=== PATIENT | male | born 1990 | race Caucasian/White ===

== ENCOUNTER 2018-04-18 08:35 | Emergency (ER) | payer OTHER, SELFPAY ==
[2018-04-18 08:38] VITALS: BP 150/97; PULSE 85; RESP 15; TEMP 36.3; O2SAT 98; BMI 28.7
--- NOTE | 2018-04-18 08:39 | ED.ABDPAIN ---
HPI - Abdominal Pain General Chief Complaint: Abdominal Pain Stated Complaint: Abdominal pain right side Time Seen by Provider: 04/18/18 08:38 Source: EMS Mode of arrival: EMS Limitations: no limitations History of Present Illness HPI narrative: Patient is a 27-year-old male who presents with right lower quadrant pain. He said it woke him up from his sleep around 2:00 a.m. and has been fairly constant. It is radiating to his flank. Not to his groin. He denies nausea or vomiting. He arrives by [facility] where he did receive 25 mcg of fentanyl. He has not had fever or chills. Pain started in his right lower quadrant without migration. No blood in his urine. MD complaint: abdominal pain Onset (ago): hour(s) Pain Consistency: constant Location: RLQ Severity: moderate Migration to: no migration Related Data Allergies Allergy/AdvReac Type Severity Reaction Status Date / Time No Known Drug Allergies Allergy Unverified 04/18/18 08:38 Review of Systems Review of Systems GENERAL: Denies chills, fatigue, malaise, fever, sweats, travel HEENT: Denies sinus pain, ear pain, sore throat, difficulty swallowing, neck pain RESPIRATORY: Denies dyspnea, cough, wheezing, hemoptysis, sputum. CARDIOVASCULAR: Denies chest pain, palpitations, orthopnea, edema GASTROINTESTINAL: See HPI : + flank pain see HPI MUSCULOSKELETAL: Denies weakness, joint pain, or bony pain SKIN: No rash, no erythema, no pruritus NEUROLOGIC: Denies weakness, dizziness, headache, numbness, change in speech, confusion PSYCHIATRIC: No concerning psychosocial issues. 12 point review of systems is negative except for those stated above and HPI [facility] Surgical History History of third molar tooth extraction History of tonsillectomy Family History Father Age: 74 Diabetes mellitus Social History Smoking Status: Never smoker alcohol intake: never substance use type: does not use Exam Initial Vital Signs Initial Vital Signs: Vital Signs Temperature 97.3 F L 04/18/18 08:38 Pulse Rate 85 04/18/18 08:38 Respiratory Rate 15 04/18/18 08:38 Blood Pressure 150/97 H 04/18/18 08:38 Pulse Oximetry 98 04/18/18 08:38 GENERAL: Well-appearing, well-nourished and in no acute distress. HEENT: Head atraumatic,EOMI, pupils reactive, CARDIOVASCULAR: Regular rate and rhythm without murmurs, rubs or gallops. RESPIRATORY: Breath sounds equal bilaterally, no wheezes rales or rhonchi. ABDOMEN: Soft, mild tenderness right lower quadrant no guarding or rebound no right upper quadrant pain negative Salazar sign : Minimal right CVA tenderness EXTREMITIES: Normal range of motion, no clubbing or edema. Neurovascularly intact NEUROLOGICAL: Alert and oriented x4.Normal gait and speech. SKIN: Warm, dry, no laceration, no petechiae, no rashes or lesions. Course Orders Ordered: Discontinued Medications Sodium Chloride (Normal Saline 0.9%) 1,000 mls @ 1,000 mls/hr IV CONT ELBERT Last Infusion: 04/18/18 14:29 Dose: 0 mls/hr Infusion: 04/18/18 10:07 Dose: 0 mls/hr Admin: 04/18/18 09:13 Dose: 1,000 mls/hr Infusion: 04/18/18 09:13 Dose: 1,000 mls/hr Admin: 04/18/18 08:43 Dose: 1,000 mls/hr Vital Signs - 8 hr 04/18/18 08:38 Temperature 97.3 F L Pulse Rate 85 Respiratory Rate 15 Blood Pressure 150/97 H Pulse Oximetry 98 MDM - Abdominal Pain Lab Data Attestation: I reviewed the patient's lab results. Result diagrams: 04/18/18 08:49 04/18/18 08:49 Lab Results 04/18/18 04/18/18 Range/Units 08:49 08:49 WBC 8.2 (4.5-11.0) X10^3/uL RBC 5.66 (4.5-5.9) X10^6/uL Hgb 16.6 (13.5-17.5) g/dL Hct 48.1 (41-53) % MCV 85.1 (80-100) fL MCH 29.3 (26-34) PG MCHC 34.4 (30-36) % RDW 12.7 (11.6-14.8) % Plt Count 244 (150-400) X10^3/uL Neut % (Auto) 80.5 H (50-75) % Lymph % (Auto) 10.1 L (25-40) % Luce % (Auto) 8.9 (3-14) % Eos % (Auto) 0.2 L (2-4) % Baso % (Auto) 0.3 (0-2) % Neut # (Auto) 6600 H (4027-2649) /uL Sodium 144 (137-145) mmol/L Potassium 4.6 (3.4-5.1) mmol/L Chloride 105 (98-107) mmol/L Carbon Dioxide 23 (22-32) mmol/L BUN 13 (9-20) mg/dL Creatinine 0.90 (0.66-1.25) mg/dL Estimated GFR > 60.0 (>60) mL/min BUN/Creatinine Ratio 14.4 (6-22) Glucose 100 (70-100) mg/dL Calcium 8.8 (8.4-10.2) mg/dL Total Bilirubin 0.3 (0.2-1.3) mg/dL AST 40 (17-59) IU/L ALT 80 H (21-72) IU/L Alkaline Phosphatase 77 (38-126) U/L Total Protein 7.6 (6.3-8.2) g/dL Albumin 4.7 (3.5-5.0) g/dL Globulin 2.9 (1.7-4.1) g/dL Albumin/Globulin Ratio 1.6 (1.0-2.8) Lipase 62 (23-300) U/L Point of care testing: Urine Dip Bedside Urine Glucose Negative Bedside Urine Bilirubin - Negative Bedside Urine Ketone - Negative Urine Specific Newman 1.015 Bedside Urine Occult Blood +++ Bedside Urine pH 6 Bedside Urine Protein - Negative Bedside Urine Urobilinogen .2 Bedside Urine Nitrite - Negative Bedside Urine Leukocytes - Negative Esterase Imaging Data CT scan - abdomen: Radiologist's impression: Report did not transmit over to [email or web address]. 1 right posterior urinary bladder calculus which likely recently passed via right collecting system 2. Normal appendix. 3. Hepatic steatosis. Discharge Plan Departure Patient Disposition: Home Clinical Impression: Kidney stone on right side Discharge Date/Time: 04/18/18 10:14 Interventions: ED Discharge Assessment Last Done: 04/18/18 10:10 Instructions: DI for Kidney Stones Activity Restrictions/Additional Instructions: *You have been diagnosed with right-sided kidney stone *What to do: It appears that you passed a kidney stone. *Continue to take medications as directed -Motrin 800 mg every 8 hr as needed for pain *Follow up with your primary care provider in 2-3 days *Return to ER if you should have any new, worsening or concerning symptoms Referrals: Fermín Cuevas MD [Family Provider] -
[2018-04-18] MEDS: SODIUM CHLORIDE 0.9% 1,000 ML 1000 ML IV ×2 (08:43→09:13)
[2018-04-18 09:01] LABS: Add Manual Diff / Slide Review NO; Basophils Percent Auto 0.3 % (0-2); Eosinophils Percent Auto 0.2 % (2-4); Hematocrit 48.1 % (41-53); Hemoglobin 16.6 g/dL (13.5-17.5); Lymphocytes Percent Auto 10.1 % (25-40); Mean Corpuscular HGB Conc 34.4 % (30-36); Mean Corpuscular Hemoglobin 29.3 PG (26-34); Mean Corpuscular Volume 85.1 fL (80-100); Monocytes Percent Auto 8.9 % (3-14); Neutrophils Absolute Auto 6600 /uL (3000-5900); Neutrophils Percent Auto 80.5 % (50-75); Platelet Count 244 X10^3/uL (150-400); Red Blood Cell Count 5.66 X10^6/uL (4.5-5.9); Red Cell Distribution Width 12.7 % (11.6-14.8); White Blood Cell Count 8.2 X10^3/uL (4.5-11.0)
--- NOTE | 2018-04-18 09:20 | DI.CT.S_ITS ---
PROCEDURE: CT ABDOMEN PELVIS W CON INDICATIONS: right lower quad pain TECHNIQUE: After the administration of intravenous contrast, 5 mm thick sections acquired from the diaphragm to the symphysis. 5 mm coronal and sagittal reformats were acquired. For radiation dose reduction, the following was used: automated exposure control, adjustment of mA and/or kV according to patient size. COMPARISON: None. FINDINGS: Image quality: Excellent. ABDOMEN: Lung bases: Lung bases are clear. Heart size is normal. Solid organs: Liver is enlarged, and demonstrates diffusely decreased density, indicating fatty infiltration. Gallbladder is within normal limits. Biliary system is non dilated. Pancreas enhances normally. Spleen is normal in size and enhancement. No adrenal nodules. Kidneys demonstrate normal size and enhancement, without hydronephrosis. Peritoneum and bowel: Bowel loops demonstrate normal wall thickness and caliber. No free fluid or air. Normal appendix. Nodes and vessels: No retroperitoneal or mesenteric adenopathy by size criteria. Aorta and inferior vena cava are normal in size. Miscellaneous: No ventral hernias. PELVIS: Genitourinary: Bladder wall thickness is normal. There is a 2 mm diameter calculus within the right posterior bladder adjacent to the ureterovesical junction. Miscellaneous: No inguinal hernias or adenopathy. Bones: No suspicious bony lesions. No vertebral body compression fractures. IMPRESSION: 1. Right posterior urinary bladder calculus, which likely recently passed via the right collecting system. 2. Normal appendix. 3. Hepatic steatosis. Dictated by: Debra Griffith M.D. on 04/18/2018 at 9:21 Approved by: Debra Griffith M.D. on 04/18/2018 at 9:23
[2018-04-18 09:25] LABS: Alanine Aminotransferase 80 IU/L (21-72); Albumin 4.7 g/dL (3.5-5.0); Albumin Globulin Ratio 1.6 (1.0-2.8); Alkaline Phosphatase 77 U/L (38-126); Aspartate Aminotransferase 40 IU/L (17-59); BUN Creatinine Ratio 14.4 (6-22); Bilirubin Total 0.3 mg/dL (0.2-1.3); Blood Urea Nitrogen 13 mg/dL (9-20); Calcium 8.8 mg/dL (8.4-10.2); Carbon Dioxide 23 mmol/L (22-32); Chloride 105 mmol/L (98-107); Estimated Glomerular Filt Rate > 60.0 mL/min (>60); Globulin 2.9 g/dL (1.7-4.1); Glucose 100 mg/dL (70-100); HEMOLYSIS < 15 (0-50); Lipase 62 U/L (23-300); Potassium 4.6 mmol/L (3.4-5.1); Sodium 144 mmol/L (137-145); Total Protein 7.6 g/dL (6.3-8.2)
--- NOTE | 2018-04-18 09:51 | PC.NURSE ---
md aware of results of urine poc, +blood. no send down per md
== END 2018-04-18 10:14 | disposition home or self-care (01) ==
LOC: ED 09:50
PROVIDERS: Emergency Provider Emergency Medicine; Family Provider Family Medicine
DX: N20.0 Calculus of kidney (principal)
CPT/HCPCS: 36415; 74177; 80053; 81003; 83690; 85025; 96360; 99283; 99285; Q9967

== ENCOUNTER 2021-01-30 15:14 | Emergency (ER) | payer OTHER, SELFPAY ==
[2021-01-30 15:25] VITALS: BP 143/98; PULSE 84; RESP 16; TEMP 36.8; O2SAT 98; BMI 31.8
--- NOTE | 2021-01-30 15:48 | DI.RAD.S_ITS ---
PROCEDURE: XR FOOT RT MIN 3V INDICATIONS: great toe injury TECHNIQUE: 3 views of the foot were acquired. COMPARISON: None. FINDINGS: Bones: There is a minimally displaced fracture at the base of the 1st proximal phalanx extending to the margin of the articular surface. No suspicious bony lesions. Soft tissues: No tibiotalar joint effusion. Achilles tendon appears normal. IMPRESSION: 1st proximal phalanx base fracture as above. Dictated by: Krystle Greenwood M.D. on 01/30/2021 at 15:59 Approved by: Krystle Greenwood M.D. on 01/30/2021 at 16:00
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
== END 2021-01-30 16:36 | disposition home or self-care (01) ==
PROVIDERS: Emergency Provider Emergency Medicine; Family Provider Family Medicine
DX: S92.401A Displaced unspecified fracture of right great toe, initial encounter for closed fracture (principal); X58.XXXA Exposure to other specified factors, initial encounter
CPT/HCPCS: 73630; 99281; 99283

== ENCOUNTER 2022-04-18 17:59 | Emergency (ER) | payer OTHER, SELFPAY ==
[2022-04-18 18:03] VITALS: BP 142/89; PULSE 71; RESP 16; TEMP 36.5; O2SAT 95; BMI 31.4
--- NOTE | 2022-04-18 18:11 | DI.CT.S_ITS ---
PROCEDURE: CT KIDNEY URETER BLADDER (KUB) INDICATIONS: left flank pain TECHNIQUE: Axial sections were acquired from the lung bases to the pubic symphysis. Coronal and sagittal reformats were performed. For radiation dose reduction, the following was used: automated exposure control, adjustment of mA and/or kV according to patient size. COMPARISON: None. FINDINGS: Image quality: Excellent. Lung bases: Unremarkable. Small hiatal hernia. Heart: No significant findings. URINARY: Right Kidney and ureter: Tiny 1-2-mm stones in right kidney. No hydronephrosis. No hydroureter. Left Kidney and ureter: There is a 2 mm stone at the right ureterovesical junction. Trace left hydronephrosis. Mild perinephric stranding and periureteral stranding. No other urinary stones. Bladder: Normal wall thickness. No stones. ABDOMEN: Liver: Normal size. Moderate hepatic steatosis. Gallbladder: Unremarkable. Biliary ducts: Unremarkable. Pancreas: Unremarkable. Spleen: Unremarkable. Adrenal Glands: Unremarkable. Stomach and Bowel: Stomach, small bowel loops, and colon are unremarkable. Peritoneum: No abnormal intraperitoneal fluid. No free air. Ventral Wall: No hernia. Abdominal Nodes: No enlarged retroperitoneal or mesenteric lymph nodes. Vessels: Aorta and inferior vena cava are normal in size. PELVIS: Pelvic Organs: Unremarkable. Pelvic Nodes: Unremarkable. Miscellaneous: No inguinal hernias are seen. Bones: Moderate degenerative disc disease at L1-L2 with posterior disc bulge and disc osteophyte complex causing moderate central canal stenosis. IMPRESSION: 1. A 2 mm stone at the left ureterovesical junction. There is mild left hydronephrosis. 2. Tiny nonobstructive right renal calculi.. 3. Hepatic steatosis. 4. Moderate central canal stenosis at L1-L2 secondary to degenerative disc disease. Dictated by: Angelito Adrian M.D. on 04/18/2022 at 19:30 Approved by: Angelito Adrian M.D. on 04/18/2022 at 19:35
[2022-04-18 19:18] VITALS: PULSE 71; O2SAT 96
[2022-04-18 19:19] VITALS: BP 140/97; PULSE 73; O2SAT 97
--- NOTE | 2022-04-18 19:24 | PC.NURSE ---
reports hx of htn, kidney stones, and migraines.
[2022-04-18 19:37] LABS: Add Manual Diff / Slide Review NO; Basophils Absolute Auto 100 /uL (0-100); Basophils Percent Auto 0.7 % (0-2); Eosinophils Absolute Auto 100 /uL (0-450); Eosinophils Percent Auto 1.2 % (2-4); Hematocrit 46.4 % (41-53); Hemoglobin 16.2 g/dL (13.5-17.5); Lymphocytes Absolute Auto 2300 /uL (1100-4500); Lymphocytes Percent Auto 28.2 % (25-40); Mean Corpuscular HGB Conc 34.9 % (30-36); Mean Corpuscular Hemoglobin 29.7 PG (26-34); Mean Corpuscular Volume 84.8 fL (80-100); Monocytes Absolute Auto 600 /uL (0-900); Monocytes Percent Auto 7.4 % (3-14); Neutrophils Absolute Auto 5200 /uL (1500-7000); Neutrophils Percent Auto 62.5 % (50-75); Platelet Count 243 X10^3/uL (150-400); Red Blood Cell Count 5.47 X10^6/uL (4.5-5.9); White Blood Cell Count 8.3 X10^3/uL (4.5-11.0)
--- NOTE | 2022-04-18 19:37 | ED_ITS ---
HPI - Back Pain/Injury General Chief Complaint: Back Pain/Injury Stated Complaint: L flank pain with hematuria Time Seen by Provider: 04/18/22 18:11 Source: patient and EMS History of Present Illness HPI Narrative: Patient is a 31-year-old male history of hypertension and kidney stones presenting today with left-sided flank pain radiating around his groin. He said pain started today started noticing blood in urine a couple days ago. No fever chills slightly nauseous. Feeling better after Toradol and Zofran. Is actually thirsty. Denies any chest pain shortness of breath or other symptoms Related Data Previous Rx's Medication Instructions Recorded cephalexin 500 mg capsule 500 mg PO BID 7 days #14 caps 04/18/22 hydrocodone 5 mg-acetaminophen 325 1 tab PO Q6H PRN pain #10 tabs 04/18/22 mg tablet ondansetron 4 mg disintegrating 4 mg PO Q8H #10 tabs 04/18/22 tablet Allergies Allergy/AdvReac Type Severity Reaction Status Date / Time No Known Drug Allergies Allergy Verified 01/30/21 15:25 Review of Systems Review of Systems Narrative: GENERAL: Denies chills, fatigue, malaise, fever, sweats, travel HEENT: Denies sinus pain, ear pain, sore throat, difficulty swallowing, neck pain RESPIRATORY: Denies dyspnea, cough, wheezing, hemoptysis, sputum. CARDIOVASCULAR: Denies chest pain, palpitations, orthopnea, edema GASTROINTESTINAL: Denies nausea, vomiting, abdominal pain, diarrhea, constipation, melena. : See HPI MUSCULOSKELETAL: Denies weakness, joint pain, or bony pain SKIN: No rash, no erythema, no pruritus NEUROLOGIC: Denies weakness, dizziness, headache, numbness, change in speech, confusion PSYCHIATRIC: No concerning psychosocial issues. 12 point review of systems is negative except for those stated above and HPI Patient History Medical History Cervical radiculopathy (03/16/16) Surgical History History of third molar tooth extraction History of tonsillectomy Family History Father Age: 78 Diabetes mellitus Social History Smoking Status: Never smoker alcohol intake: never substance use type: does not use Smoking Status: Never smoker Substance Use Type: does not use Exam Initial Vital Signs Initial Vital Signs: Vital Signs Temperature 97.7 F 04/18/22 18:03 Pulse Rate 71 04/18/22 18:03 Respiratory Rate 16 04/18/22 18:03 Blood Pressure 142/89 H 04/18/22 18:03 Pulse Oximetry 95 04/18/22 18:03 Oxygen Delivery Method 04/18/22 18:03 GENERAL: Alert pleasant 31-year-old male HEENT: Head atraumatic,EOMI, pupils reactive, face symmetric, moist mucous membranes CARDIOVASCULAR: Regular rate and rhythm without murmurs, rubs or gallops. RESPIRATORY: Breath sounds equal bilaterally, no wheezes rales or rhonchi. ABDOMEN: Soft, nontender. Normoactive bowel sounds all 4 quadrants. No guarding or rebound. : Mild left flank pain EXTREMITIES: Normal range of motion, no clubbing or edema. Neurovascularly intact NEUROLOGICAL: Alert and oriented x4. SKIN: Warm, dry, no laceration, no petechiae, no rashes or lesions. Course Orders Ordered: ED Orders 04/18/22 18:11 CT kidney ureter bladder (KUB) Stat 04/18/22 18:30 CBC Auto Diff [Complete Blood Count AUTO DIFF] Stat CMP [Comprehensive Metabolic Panel] Stat Lipase Stat 04/18/22 19:22 Ictotest Urine Stat UA Complete [Urinalysis and Microscopic] Stat Urine Culture Stat Discontinued Medications Hydrocodone Bitart/Acetaminophen (Hydrocodone/Acet 5/325 Prepack) 1 bottle MISC SEEINSTR ONE Stop: 04/18/22 20:51 Last Admin: 04/18/22 20:57 Dose: 1 bottle Documented By: FESTUS Cefazolin Sodium (Cephalexin 250 Mg Prepack) 1 bottle MISC SEEINSTR ONE Stop: 04/18/22 20:54 Last Admin: 04/18/22 20:57 Dose: 1 bottle Documented By: FESTUS Ketorolac Tromethamine (Ketorolac 30 Mg/Ml Vial) 15 mg IV NOW ONE Stop: 04/18/22 18:13 Last Admin: 04/18/22 18:20 Dose: Not Given Documented By: AMBIKA Morphine Sulfate (Morphine 2 Mg/Ml Inj) 2 mg IV NOW ONE Stop: 04/18/22 19:51 Last Admin: 04/18/22 20:00 Dose: 2 mg Documented By: FESTUS Ondansetron HCl (Ondansetron 4 Mg/2 Ml Inj) 4 mg IV NOW ONE Stop: 04/18/22 18:13 Last Admin: 04/18/22 19:19 Dose: Not Given Documented By: CAIO Ondansetron HCl (Ondansetron 4 Mg Odt Prepack) 1 bottle MISC SEEINSTR ONE Stop: 04/18/22 20:51 Last Admin: 04/18/22 20:57 Dose: 1 bottle Documented By: FESTSU Vital Signs Vital signs: Vital Signs - 8 hr 04/18/22 18:03 04/18/22 19:18 04/18/22 19:19 Temperature 97.7 F Pulse Rate 71 71 Respiratory Rate 16 Blood Pressure 142/89 H 140/97 H Pulse Oximetry 95 96 Oxygen Delivery Method Room Air 04/18/22 19:19 04/18/22 21:00 04/18/22 21:00 Temperature Pulse Rate 73 64 Respiratory Rate 18 Blood Pressure 143/98 H Pulse Oximetry 97 97 Oxygen Delivery Method MDM - Back Pain/Injury Differential Diagnosis Differential diagnosis: Likely lumbar radiculopathy, renal colic, pyelonephritis, AAA and discitis Lab Data Result diagrams: 04/18/22 18:30 04/18/22 18:30 Labs: Lab Results 04/18/22 04/18/22 04/18/22 Range/Units 18:30 18:30 19:22 WBC 8.3 (4.5-11.0) X10^3/uL RBC 5.47 (4.5-5.9) X10^6/uL Hgb 16.2 (13.5-17.5) g/dL Hct 46.4 (41-53) % MCV 84.8 (80-100) fL MCH 29.7 (26-34) PG MCHC 34.9 (30-36) % RDW 13.0 (11.6-14.8) % Plt Count 243 (150-400) X10^3/uL Neut % (Auto) 62.5 (50-75) % Lymph % (Auto) 28.2 (25-40) % Bailey % (Auto) 7.4 (3-14) % Eos % (Auto) 1.2 L (2-4) % Baso % (Auto) 0.7 (0-2) % Neut # (Auto) 5200 (8637-5315) /uL Lymph # (Auto) 2300 (8870-1317) /uL Bailey # (Auto) 600 (0-900) /uL Eos # (Auto) 100 (0-450) /uL Baso # (Auto) 100 (0-100) /uL Sodium 141 (137-145) mmol/L Potassium 3.8 (3.4-5.1) mmol/L Chloride 102 (98-107) mmol/L Carbon Dioxide 28 (22-32) mmol/L BUN 21 H (9-20) mg/dL Creatinine 0.89 (0.66-1.25) mg/dL Estimated GFR > 60 (>60) mL/min BUN/Creatinine Ratio 23.6 H (6-22) Glucose 98 (70-100) mg/dL Calcium 9.6 (8.4-10.2) mg/dL Total Bilirubin 0.4 (0.2-1.3) mg/dL AST 28 (17-59) IU/L ALT 56 H (<50) IU/L Alkaline Phosphatase 108 (38-126) U/L Total Protein 8.2 (6.3-8.2) g/dL Albumin 4.7 (3.5-5.0) g/dL Globulin 3.5 (1.7-4.1) g/dL Albumin/Globulin Ratio 1.3 (1.0-2.8) Lipase 66 (23-300) U/L Urine Color Brown Urine Appearance Cloudy Urine pH 5.0 (4.5-8.0) Ur Specific Alexander 1.025 (1.000-1.035) Urine Protein 3+ H (Negative) Urine Glucose (UA) Negative (Negative) g/dL Urine Ketones Trace H (NEGATIVE) Urine Occult Blood 3+ H (Negative) Urine Nitrate Negative (Negative) Urine Bilirubin 1+ H (NEGATIVE) Ur Bilirubin Confirm Negative (Negative) Urine Urobilinogen 0.2 (0.2) E.U./dL Ur Leukocyte Esterase Trace H (NEGATIVE) Urine RBC >100/hpf H (0-5/HPF) Urine WBC 1-5/hpf (0-5/HPF) Ur Squamous Epith Cells 0-1 /hpf (0-5/HPF) Amorphous Sediment 2+ Urine Bacteria Few (2-10) H (None) Urine Mucus 1+ H (Negative) Ur Culture Indicated? Specimen cultured Urine Dip Bedside Urine Glucose Negative Bedside Urine Bilirubin + 1 Bedside Urine Ketone +/- 5 Urine Specific Alexander 1.030 Bedside Urine Occult Blood +++ Bedside Urine pH 5.5 Bedside Urine Protein +++ 300 Bedside Urine Urobilinogen - Negative Bedside Urine Nitrite + Positive Bedside Urine Leukocytes + [address] scan - abdomen/pelvis: Radiologist's Impression: oliver Ramirez MR#: [id number] : 1990 Acct:[id number] Age/Sex: 31 / M Date of Service: 04/18/22 Loc: ED Accession Number: [id number] ?? Procedure: CT kidney ureter bladder (KUB) Ordering Provider: Jesika Stuart PROCEDURE:? CT KIDNEY URETER BLADDER (KUB) ? INDICATIONS:? left flank pain ? TECHNIQUE:? Axial sections were acquired from the lung bases to the pubic symphysis.? Coronal and sagittal reformats were performed.? For radiation dose reduction, the following was used: ?automated exposure control, adjustment of mA and/or kV according to patient size.? ? COMPARISON:? None. ? FINDINGS:? Image quality:? Excellent.? ? Lung bases:? Unremarkable.? Small hiatal hernia. ? Heart:? No significant findings. ? URINARY: Right Kidney and ureter: ? Tiny 1-2-mm stones in right kidney.? No hydronephrosis. ? No hydroureter.? ? Left Kidney and ureter:? There is a 2 mm stone at the right ureterovesical junction.? Trace left hydronephrosis.? Mild perinephric stranding and periureteral stranding.? No other urinary stones.? ? ? Bladder:? Normal wall thickness. No stones. ? ? ? ABDOMEN: Liver:? Normal size.? Moderate hepatic steatosis.? ? Gallbladder:? Unremarkable.? ? Biliary ducts:? Unremarkable.? ? Pancreas:? Unremarkable.? ? Spleen:? Unremarkable.? ? Adrenal Glands:? Unremarkable.? ? ? Stomach and Bowel:? Stomach, small bowel loops, and colon are unremarkable.? Peritoneum:? No abnormal intraperitoneal fluid.? No free air.? ? Ventral Wall: ? No hernia.? Abdominal Nodes:? No enlarged retroperitoneal or mesenteric lymph nodes.? Vessels:? Aorta and inferior vena cava are normal in size.? ? PELVIS: Pelvic Organs:? Unremarkable.? ? Pelvic Nodes: Unremarkable. Miscellaneous: No inguinal hernias are seen. ? ? ? Bones:? Moderate degenerative disc disease at L1-L2 with posterior disc bulge and disc osteophyte complex causing moderate central canal stenosis. ? IMPRESSION:? ? 1. A 2 mm stone at the left ureterovesical junction.? There is mild left hydronephrosis. ? 2. Tiny nonobstructive right renal calculi.. ? 3.? Hepatic steatosis. ? 4. Moderate central canal stenosis at L1-L2 secondary to degenerative disc disease.? Dictated by: Angelito Adrian M.D. on 04/18/2022 at 19:30 MDM Narrative Medical decision making narrative: Patient's pain is relatively controlled but still needing no bit of morphine. Blood work is reassuring. CT confirms a 2 mm kidney stone. Urinalysis positive for leukocytes and blood. Will start on antibiotics as well. Discharge Plan Departure Patient Disposition: Home Clinical Impression: Kidney stones, Acute UTI Activity Restrictions/Additional Instructions: *You have been diagnosed with kidney stone and UTI *What to do: Increase fluid intake pain control. May need to be seen by Urology if you continue to have kidney stones. I suspect that you will pass this in the next 24-48 hours. *Continue to take medications as directed--> SENT TO [facility] Motrin 600 mg every 6 hours if needed for [id number] pain [place] 1 tablet every 6 hours if needed for severe pain Zofran 4 mg every 8 hours if needed for nausea vomiting Keflex 500 mg twice a day for 7 days *Follow up with your primary care provider in 2-3 days or call [phone] *Return to ER if you should have increasing pain fever inability to urinate or any new, worsening or concerning symptoms CONTROLLED SUBSTANCE DISCHARGE (Narcotoic/benzodiazepine/Flexeril/Phenergan) 1. You have been prescribed narcotic medications, it does have consuelo taminophen/Tylenol/paracetamol in it, DO NOT TAKE MORE THAN 4,00mg in 24 hours of Tylenol. TRAMADOL DOES NOT CONTAIN TYLENOL 2. Please understand that we cannot provide further refills of narcotics, benzodiazepines or controlled substances through the ED and her pain management will need to be through your provider. 3. While on these medications you cannot drive or operate heavy machinery. 4. You cannot sign legal documents or perform any duties such as this. 5. As long as you're taking opiate pain medications he should also be taking a stool softener such as Colace, Dulcolax, MiraLAX or prune juice, to help avoid constipation. Prescriptions: New hydrocodone-acetaminophen 5-325 mg tablet 1 tab PO Q6H PRN (Reason: pain) Qty: 10 0RF cephalexin 500 mg capsule 500 mg PO BID 7 Days Qty: 14 0RF ondansetron 4 mg tablet,disintegrating 4 mg PO Q8H Qty: 10 0RF Referrals: Miscellaneous,Doctor, MD [Primary Care Provider] - Visit Report Forms: Patient Portal/API
[2022-04-18 19:51] LABS: Alanine Aminotransferase 56 IU/L (<50); Albumin 4.7 g/dL (3.5-5.0); Albumin Globulin Ratio 1.3 (1.0-2.8); Alkaline Phosphatase 108 U/L (38-126); Aspartate Aminotransferase 28 IU/L (17-59); BUN Creatinine Ratio 23.6 (6-22); Bilirubin Total 0.4 mg/dL (0.2-1.3); Blood Urea Nitrogen 21 mg/dL (9-20); Calcium 9.6 mg/dL (8.4-10.2); Carbon Dioxide 28 mmol/L (22-32); Chloride 102 mmol/L (98-107); Estimated Glomerular Filt Rate > 60 mL/min (>60); Globulin 3.5 g/dL (1.7-4.1); Glucose 98 mg/dL (70-100); HEMOLYSIS < 15 (0-50); Lipase 66 U/L (23-300); Potassium 3.8 mmol/L (3.4-5.1); Sodium 141 mmol/L (137-145); Total Protein 8.2 g/dL (6.3-8.2)
[2022-04-18] MEDS: MORPHINE 2 MG/ML INJ IV (20:00)
[2022-04-18] MEDS: ONDANSETRON 4 MG ODT PREPACK 1 BOTTLE MISC (20:57)
[2022-04-18] MEDS: HYDROCODONE/ACET 5/325 PREPACK 1 BOTTLE MISC (20:57)
[2022-04-18] MEDS: cephALEXin 250 MG PREPACK 1 BOTTLE MISC (20:57)
[2022-04-18 21:00] VITALS: BP 143/98; PULSE 64; RESP 18; O2SAT 97
[2022-04-18 21:20] LABS: Bilirubin Urine UA 1+ (NEGATIVE); Glucose Urine UA NEGATIVE (Negative); Ketones Urine UA TRACE (NEGATIVE); Leukocyte Esterase Urine UA TRACE (NEGATIVE); Nitrite Urine UA NEGATIVE (Negative); Occult Blood Urine UA 3+ (Negative); Protein Urine UA 3+ (Negative); Specific Gravity Urine UA 1.025 (1.000-1.035); Urobilinogen Urine UA 0.2 E.U./dL (0.2)
[2022-04-18 21:21] LABS: Appearance Urine UA Cloudy; Color Urine UA BROWN
[2022-04-18 21:24] LABS: Ictotest Urine Negative (Negative); RBC Urine >100/HPF (0-5/HPF); Squamous Epithelial Cell Urine 0-1 /HPF (0-5/HPF); WBC Urine 1-5/HPF (0-5/HPF)
[2022-04-18 21:25] LABS: Amorphous Sediment Urine 2+; Bacteria Urine Few (2-10); Culture Indicated Urine Specimen Cultured; Mucus Urine 1+ (Negative)
== END 2022-04-18 21:12 | disposition home or self-care (01) ==
PROVIDERS: Nurse Practitioner Critical Care Medicine; Emergency Provider Emergency Medicine; Family Provider Family Medicine
DX: N20.0 Calculus of kidney (principal); N39.0 Urinary tract infection, site not specified; R31.9 Hematuria, unspecified
CPT/HCPCS: 36415; 74176; 80053; 81001; 81003; 83690; 85025; 87086; 96374; 99284; J2270